=== PATIENT | male | born 1970 | race Caucasian/White ===

== ENCOUNTER 2023-02-10 15:00 | Outpatient (RCR) | payer BC, SELFPAY ==
[2023-01-25 15:17] VITALS: BMI 30.9
[2023-01-25 15:25] VITALS: BMI 30.9
[2023-02-10 15:00] VITALS: BMI 30.7
[2023-02-10 15:03] VITALS: BMI 30.7
== END 2023-04-11 12:35 | disposition home or self-care (01) ==
LOC: ANHDMC 15:00
PROVIDERS: Visit Provider Physician Assistant Medical
DX: E11.9 Type 2 diabetes mellitus without complications (principal); Z71.3 Dietary counseling and surveillance
CPT/HCPCS: 97802; 97803